=== PATIENT | female | born 1985 | race Hispanic/Latino ===

== ENCOUNTER 2024-08-15 21:18 | Inpatient (IN) | payer SELFPAY ==
[~2024-08-15] VITALS: Ht 167.6 cm; Wt 89.8 kg
[2024-08-15 22:06] LABS: BASOPHILS # (AUTO) 0.03 K/uL (0.00-0.20); BASOPHILS % (AUTO) 0.6 % (0.0-5.0); EOSINOPHILS # (AUTO) 0.12 K/uL (0.00-0.70); EOSINOPHILS % (AUTO) 2.4 % (0.0-8.0); HEMATOCRIT 39.1 % (36-48); IMMATURE GRANULOCYTE ABSOLUTE 0.01 K/uL (0-1); LYMPHOCYTES # (AUTO) 1.2 K/uL (1.0-4.8); LYMPHOCYTES % (AUTO) 24.2 % (21.0-51.0); MEAN CORPUSCULAR HEMOGLOBIN 27.8 pg (27.0-33.0); MEAN CORPUSCULAR HGB CONC 32.2 g/dL (32.0-36.0); MEAN CORPUSCULAR VOLUME 86.1 fL (79-99); MONOCYTES # (AUTO) 0.5 K/uL (0.1-1.0); MONOCYTES % (AUTO) 10.5 % (3.0-13.0); NEUTROPHILS # (AUTO) 3.1 K/uL (1.8-7.7); NEUTROPHILS % (AUTO) 62.1 % (40.0-77.0); PLATELET COUNT (AUTO) 191 K/uL (130-400); RED BLOOD CELL COUNT(AUTO) 4.54 MIL/uL (4.00-5.50); RED CELL DISTRIBUTION WIDTH 13.5 % (11.0-15.5); WHITE BLOOD COUNT (AUTO) 5.1 K/uL (4.8-10.8)
[2024-08-15] MEDS: FAMOTIDINE 20MG TAB PO ONE (22:11)
[2024-08-15] MEDS: ondanSETRON 4MG INJ IVP ONE (22:11)
[2024-08-15 22:15] LABS: CREATININE 0.7 mg/dL (0.5-1.0); POTASSIUM 4.4 mmol/L (3.5-5.1)
[2024-08-15 22:24] LABS: ALBUMIN 3.9 g/dL (3.5-5.0); BILIRUBIN,TOTAL 4.5 mg/dL (0.2-1.0); TOTAL PROTEIN, SERUM 7.6 g/dL (6.0-8.3)
[2024-08-15 22:25] LABS: APPEARANCE,URINE CLOUDY (CLEAR); BILIRUBIN,URINE 1 mg/dL (NEGATIVE); COLOR,URINE DARK-YELLOW (YELLOW); GLUCOSE, URINE (UA) NEGATIVE (NEGATIVE); KETONES,URINE 150 mg/dL (NEGATIVE); LEUKOCYTE ESTERASE ,URINE 250 Leu/uL (NEGATIVE); NITRATE,URINE NEGATIVE (NEGATIVE); OCCULT BLOOD,URINE LARGE (NEGATIVE); PH,URINE 5.5 (5.0-8.0); PROTEIN,URINE 20 mg/dL (NEGATIVE)
[2024-08-15 22:28] LABS: ADD UA MICROSCOPIC YES
[2024-08-15 22:30] LABS: WBC CLUMP FEW /HPF (0-1)
[2024-08-15 22:31] LABS: BACTERIA,URINE Rare /HPF (None Seen); MUCUS,URINE Rare LPF (None Seen); SQUAMOUS EPITHELIAL CELL,UR Moderate /HPF (0-2)
[2024-08-15 22:41] LABS: HCG,QUALITATIVE URINE NEGATIVE (NEGATIVE)
[2024-08-15] MEDS ORDERED: IOHEXOL 350 MG/ML 100ML INFUS..BTL IV ONE (22:53)
[2024-08-15] MEDS: morPHINE 4 MG SYG IVP ONE (23:49)
[2024-08-16] MEDS: ondanSETRON 4MG INJ IVP ONE (03:14)
[2024-08-16] MEDS: morPHINE 4 MG SYG IVP ONE (03:14)
[2024-08-16] MEDS: 0.9%NACL 1000ML 1,000 ML IV ONE (03:14)
[2024-08-16] MEDS: UNASYN 1.5GM+NS 100ML IV SCH (03:14)
[2024-08-16] MEDS: morPHINE 4 MG SYG ONE (03:15)
[2024-08-16] MEDS ORDERED: PoTASSium chloRIDE 20MEQ/100ML 100 ML IV PRN (04:30)
[2024-08-16] MEDS ORDERED: morPHINE 2 MG SYG IV PRN (04:30)
[2024-08-16] MEDS ORDERED: ondanSETRON 4MG INJ IV PRN (04:30)
[2024-08-16] MEDS ORDERED: MAGNESIUM 2GM PREMIX 50ML 50 ML IV PRN (04:30)
[2024-08-16 05:30] VITALS: BP 158/88; PULSE 96; RESP 18; TEMP 98.1
[2024-08-16] MEDS: 0.9%NACL 1000ML 1,000 ML IV SCH (05:49)
[2024-08-16 06:20] LABS: BASOPHILS # (AUTO) 0.03 K/uL (0.00-0.20); BASOPHILS % (AUTO) 0.8 % (0.0-5.0); EOSINOPHILS % (AUTO) 2.5 % (0.0-8.0); HEMATOCRIT 37.3 % (36-48); IMMATURE GRANULOCYTE ABSOLUTE 0.01 K/uL (0-1); LYMPHOCYTES # (AUTO) 0.9 K/uL (1.0-4.8); LYMPHOCYTES % (AUTO) 23.4 % (21.0-51.0); MEAN CORPUSCULAR HEMOGLOBIN 28.1 pg (27.0-33.0); MEAN CORPUSCULAR HGB CONC 32.4 g/dL (32.0-36.0); MEAN CORPUSCULAR VOLUME 86.7 fL (79-99); MONOCYTES # (AUTO) 0.4 K/uL (0.1-1.0); MONOCYTES % (AUTO) 9.4 % (3.0-13.0); NEUTROPHILS # (AUTO) 2.5 K/uL (1.8-7.7); NEUTROPHILS % (AUTO) 63.6 % (40.0-77.0); PLATELET COUNT (AUTO) 193 K/uL (130-400); RED CELL DISTRIBUTION WIDTH 13.6 % (11.0-15.5); WHITE BLOOD COUNT (AUTO) 3.9 K/uL (4.8-10.8)
[2024-08-16 06:36] LABS: ALBUMIN 3.5 g/dL (3.5-5.0); BILIRUBIN,TOTAL 5.1 mg/dL (0.2-1.0); CREATININE 0.6 mg/dL (0.5-1.0); MAGNESIUM 1.8 mg/dL (1.80-2.40); POTASSIUM 3.8 mmol/L (3.5-5.1); TOTAL PROTEIN, SERUM 7.2 g/dL (6.0-8.3)
[2024-08-16 07:39] LABS: ERYTHROCYTE SEDIMENTATION RATE 15 MM/HR (0-20)
[2024-08-16 07:49] LABS: INR 1.01 (0.85-1.15); PROTHROMBIN TIME 10.9 SEC (9.6-11.6)
[2024-08-16 07:51] LABS: PARTIAL THROMBOPLASTIN TIME 30.2 SEC (26.3-35.5)
[2024-08-16 08:29] VITALS: BP 137/67; PULSE 78; RESP 18; TEMP 98
[2024-08-16 09:04] VITALS: O2SAT 98
[2024-08-16] MEDS: AMP/SULBAC 1.5GM+NS 100ML 100 ML IV SCH (09:22)
[2024-08-16] MEDS: FAMOTIDINE 20MG VIAL IV SCH (09:22)
[2024-08-16] MEDS ORDERED: hydroMORPHone 0.5 MG SYG (0.5MG/0.5ML) IVP PRN (10:30)
[2024-08-16 11:27] VITALS: BP 137/74; PULSE 64; RESP 16; TEMP 98.1
[2024-08-16] MEDS: ketOROlac 30MG VIAL (30MG/ML) IVP SCH (12:16)
[2024-08-16] MEDS ORDERED: BENZOCAINE/MENTH/CETYLPYRD CL 1 EACH LOZENGE MM PRN (12:30)
[2024-08-16] MEDS ORDERED: GADOTERATE MEGLUMINE 10 MMOL/20 ML VIAL IV ONE (14:53)
[2024-08-16 16:46] VITALS: BP 126/67; PULSE 60; RESP 18; TEMP 98.3
[2024-08-16 20:00] VITALS: BP 138/75; PULSE 60; RESP 20; TEMP 97.7; O2SAT 98
[2024-08-17] VITALS: BP 131/77; PULSE 60; RESP 20; TEMP 98
[2024-08-17 04:00] VITALS: BP 158/78; PULSE 54; RESP 20; TEMP 98.5
[2024-08-17 05:20] LABS: HEMATOCRIT 37.9 % (36-48); MEAN CORPUSCULAR HEMOGLOBIN 28.3 pg (27.0-33.0); MEAN CORPUSCULAR HGB CONC 31.9 g/dL (32.0-36.0); MEAN CORPUSCULAR VOLUME 88.6 fL (79-99); RED BLOOD CELL COUNT(AUTO) 4.28 MIL/uL (4.00-5.50); RED CELL DISTRIBUTION WIDTH 13.4 % (11.0-15.5); WHITE BLOOD COUNT (AUTO) 4.2 K/uL (4.8-10.8)
[2024-08-17 05:41] LABS: ALBUMIN 3.3 g/dL (3.5-5.0); BILIRUBIN,TOTAL 1.8 mg/dL (0.2-1.0); CREATININE 0.8 mg/dL (0.5-1.0); POTASSIUM 3.7 mmol/L (3.5-5.1); TOTAL PROTEIN, SERUM 6.8 g/dL (6.0-8.3)
[2024-08-17 08:00] VITALS: BP 151/77; PULSE 58; RESP 19; TEMP 98.3
[2024-08-17 12:00] VITALS: BP 137/75; PULSE 60; RESP 19; TEMP 97.8
[2024-08-17 14:49] VITALS: O2SAT 98
[2024-08-17 16:00] VITALS: BP 141/75; PULSE 55; RESP 18; TEMP 97.7
== END 2024-08-17 17:54 | disposition home or self-care (01) | DRG 445 ==
LOC: EDH 21:18 → EDHIP 21:19 → UNDOADMIN 08-16 04:21 → EDHIP 08-16 04:39 → 3DH 08-16 04:39
PROVIDERS: ADMIT Internal Medicine; ATTEND Internal Medicine
DX: K80.01 Calculus of gallbladder with acute cholecystitis with obstruction (principal); N39.0 Urinary tract infection, site not specified; R74.8 Abnormal levels of other serum enzymes; E66.9 Obesity, unspecified; Z68.32 Body mass index [BMI] 32.0-32.9, adult
CPT/HCPCS: 36415; 74177; 74183; 80053; 81001; 81025; 83690; 83735; 85025; 85027; 85610; 85651; 85730; 87040; 87086; 96365; 96375; 96376; G0378; J0295; J1885; J2270; J2405; J3490; Q9967; A9575